=== PATIENT | female | born 1965 | race Caucasian/White ===

== ENCOUNTER → 2018-01-18 | Outpatient (CLI) | payer OTHER | LOC: BRMIMAGING 12:41 | PROVIDERS: ATTEND Family Medicine | DX: D25.9 Leiomyoma of uterus, unspecified (principal); N83.202 Unspecified ovarian cyst, left side | CPT/HCPCS: 76856-PO ==

== ENCOUNTER → 2018-01-30 | Outpatient (CLI) | payer OTHER | LOC: BRMIMAGING 13:59 | PROVIDERS: ATTEND Family Medicine | DX: Z12.31 Encounter for screening mammogram for malignant neoplasm of breast (principal) ==

== ENCOUNTER 2018-02-27 07:15 | Observation (INO) | payer OTHER ==
--- NOTE | 2018-02-26 19:44 | GHP ---
[f rep st] PREOP HISTORY AND PHYSICAL PLANNED PROCEDURE: Total laparoscopic hysterectomy with bilateral salpingectomy , possible oophorectomy, and cystoscopy. Additional procedures as indicated. INDICATIONS: The patient is a 52-year-old, 5, para 3-0-2 -3, who presented for evaluation of dysfunctional uterine bleeding and constant cramping. The patient has been on continuous control pills for 10 years. She did not have any periods or issues. Her primary care doctor decided to stop secondary to her age and she began having irregular cycles lasting 2 weeks , then off a week, then started bleeding again. She was bleeding for 7 days. The patient was restarted on control pills and her blood pressure increased, so the primary care doctor discontinued control pills. Since that time, the patient has had dysfunctional uterine bleeding as described above with constant cramping and fatigue. Pelvic ultrasound was unremarkable except for a small fibroid. The patient is also having issues with dyspareunia. Management options were reviewed with the patient; but because of her increased blood pressure with control pills, decision was made to proceed with definitive therapy with a total laparoscopic hysterectomy with bilateral salpingectomies. The patient is declining to have her ovaries removed at this time unless they look suspicious at time of surgery. Risks and benefits of the procedure have been extensively reviewed with the patient. The patient has been properly consented. PAST MEDICAL HISTORY: History of staph infection, history of kidney stones, fibromyalgia, history of interstitial cystitis, history of urinary incontinence , anxiety, and history of migraines. MEDICATIONS: 1. Gabapentin 900 mg 2 times a day. 2. Robinson Thyroid 60 mg a day. 3. Amlodipine 10 mg a day. 4. Effexor 75 mg a day. 5. Tramadol 50 mg 2 times a day. ALLERGIES: Iodine, codeine, and penicillin. 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 She denies tobacco, alcohol, or drug use. FAMILY MEDICAL HISTORY: Noncontributory. OBSTETRICS/GYNECOLOGICAL HISTORY: Menarche at age 11. Periods have been irregular over the last couple months, lasting 7 days and are very heavy. She is a 5, para 3-0-2-3. She has had 3 spontaneous vaginal deliveries, 1 voluntary termination of , and 1 spontaneous . PAST SURGICAL HISTORY: Bladder sling, voluntary termination of , nephrolithiasis. REVIEW OF SYSTEMS: A 10-point review of systems is negative with exception of the above mentioned pertinent positives of constant cramping and dysfunctional uterine bleeding and fatigue. PHYSICAL EXAMINATION: VITAL SIGNS: Stable, her blood pressure is 108/70. Her weight is 133. GENERAL APPEARANCE: Alert and oriented x3. NECK: Mobile and supple. PSYCH: Appropriate affect. MUSCULOSKELETAL: Grossly intact. NEURO: Grossly intact. HEART: Rate is irregular irregular. LUNGS: Clear to auscultation bilaterally. ABDOMEN: Soft, nondistended, nontender. EXTREMITIES : Reveal no calf tenderness or edema. PELVIC: Exam reveals a mobile midposition uterus with no adnexal masses. An endometrial biopsy was performed which was inactive proliferative endometrium. Pelvic ultrasound shows uterus measuring 8.5 x 6.1 x 5.8 cm with an intramural fibroid measuring 2.3 x 1.7 x 1.8 cm, and there is a cystic structure loaded noted on the left ovary. ASSESSMENT AND PLAN: This is a 52-year-old 5, para 3-0-2-3, with dysfunctional uterine bleeding and constant cramping requesting definitive therapy. She will undergo a total laparoscopic hysterectomy with bilateral salpingectomies and cystoscopy, possible oophorectomy. Risks and benefits have been extensively reviewed with the patient and the patient has been properly consented. /[id number]/MODL MTDD
[2018-02-27] MEDS ORDERED: ONDANSETRON 4 MG/2 ML VIAL IVP PRN (10:30)
[2018-02-27] MEDS ORDERED: LR 1,000 ML IV SCH (10:30)
[2018-02-27] MEDS ORDERED: ACETAMINOPHEN 500 MG TAB ONE (11:23)
[2018-02-27] MEDS ORDERED: DIAZEPAM 5 MG/ML 1 ML SYR ONE (11:23)
[2018-02-27] MEDS ORDERED: KETOROLAC 30 MG/1 ML SDV ONE ×2 (15:28→21:22)
[2018-02-27] MEDS ORDERED: ONDANSETRON 4 MG/2 ML VIAL ONE (16:56)
[2018-02-27] MEDS: traMADol 50 MG TAB PO SCH (21:00)
[2018-02-27] MEDS: KETOROLAC 30 MG/1 ML SDV IVP SCH (21:25)
[2018-02-27] MEDS ORDERED: GABAPENTIN 300 MG CAP ONE ×2 (21:36→21:38)
[2018-02-27] MEDS: GABAPENTIN 300 MG CAP PO SCH (21:40)
--- NOTE | 2018-02-27 22:32 | GOP ---
[f rep st] OPERATIVE REPORT DATE OF OPERATION: 02/27/2018 SURGEON: Joan Platt DO MEDIATOR: Jaun Carrasco MD PREOPERATIVE DIAGNOSIS: Dysfunctional uterine bleeding and menorrhagia. POSTOPERATIVE DIAGNOSIS: Dysfunctional uterine bleeding and menorrhagia. PROCEDURE PERFORMED: Total laparoscopic hysterectomy with bilateral salpingectomy and cystoscopy. FINDINGS: 1. Mobile, midposition uterus with no adnexal masses. 2. Laparoscopic findings: Omental adhesion to the anterior abdominal wall. Bilateral simple ovaria n cysts. Otherwise, normal ovaries, uterus, and tubes. SPECIMENS: Uterus, cervix and bilateral fallopian tubes. ESTIMATED BLOOD LOSS: 50 cc. INDICATIONS: The patient is a 52-year-old 5, para 3-0-2-3, who has a recent history of dysfu nctional uterine bleeding and bleeding 2 weeks at a time and very heavy bleeding. Management options were reviewed with the patient. The patient is not a candidate for control pills since she alexis s constant cramping and so is requesting definitive therapy with a total laparoscopic hysterectomy. The patient is not menopausal yet, so she has decided that she wants to keep her ovaries. Risks and benefits of the procedure were reviewed with the patient, and the patient was properly consented. DESCRIPTION OF PROCEDURE: The patient was taken to the operating room with intravenous fluids in wilmer ce. She was then placed on the operating room table in dorsal supine position where general anesthes ia was obtained. She was then repositioned into the dorsal lithotomy position with the Yellofin stir rups and prepped and draped in the normal sterile fashion. Exam under anesthesia revealed a mobile, midposition uterus with no adnexal masses. A Oscar catheter was placed. Venodynes were placed on he r lower extremities. She was also given 2 g of Ancef intravenously. A speculum was then placed, and a single-tooth tenaculum was placed on the anterior lip of the cervix. The cervix was sounded to 8. 5 cm and dilated to allow for the introduction of the BEBA uterine manipulator. The large cup was us ed. The balloons were tested prior to placement of the manipulator. A 5 mm skin incision was then m marva in the umbilicus, and a 5 mm trocar was advanced into the patient's abdomen under direct visualiz ation with the laparoscope. The abdomen was then insufflated with CO2 gas until an adequate pneumope ritoneum was achieved. The area underneath the trocar insertion site was evaluated and found to be u nremarkable. A 5 mm skin incision was then made in the patient's right lower quadrant, and a 5 mm tr ocar was then advanced into the patient's abdomen under direct visualization. A 10 mm skin incision was then made in the left lower quadrant, and a 10 mm trocar was advanced into the patient's abdomen under direct visualization. The laparoscope was then introduced into the lower port, and the umbilic al incision was evaluated. It was found to be unremarkable. Adhesions were noted between the anteri or abdominal wall and the omentum, and these were lysed carefully with the LigaSure. The camera was then reintroduced to the umbilical trocar. The uterus was noted to be freely mobile. Both ovaries, uterus, and tubes were unremarkable. The fallopian tube was identified and grasped at the fimbriated end, and a right salpingectomy was performed. The utero-ovarian ligament was clamped, cauterized, a nd transected. The broad ligament was clamped, cauterized, and transected. The uterine arteries wer e skeletonized, clamped, cauterized, and transected, and a bladder flap was created anteriorly. [facility] the patient's left side in which the same procedure was performed in a simil ar fashion. The uterine arteries were skeletonized and found to be hemostatic, and the bladder flap was created anteriorly, and the bladder was dissected well off the colpotomy cup. The colpotomy ring was easily identified. The colpotomy was made starting posteriorly and the ring. The colpotomy was made after the Pneumo Occluder balloon was inflated. It was then deflated, and the uterus was then withdrawn into the vagina and handed off. A sponge in a glove was then inserted into the vagina to h elp maintain pneumoperitoneum. Hemostasis of the vaginal cuff was assured. The ovaries were evaluat ed and found to be unremarkable, appeared to have simple cysts on them. The vaginal cuff was closed with an 0 Vicryl V-Loc suture in a running fashion. We went all the way across and then back [facility] to the midline with the V-Loc suture. The ureters were visualized and identified peristalsing. The pelvis was irrigated, and hemostasis was assured. The pedicles were evaluated and found to be hemos tatic. The 10 mm trocar was then removed from the patient's abdomen, and the fascia was closed with a fascial closure device with an 0 Vicryl suture. The patient was given methylene blue, and a cystos copy was performed. Bilateral ureteral jets were noted with methylene blue urine. The hysteroscope was then discontinued. The remainder of the instruments were removed from the patient's abdomen. CO 2 gas was expressed from the patient's abdomen. These incisions were then closed with 4-0 Monocryl. Sponge, lap, and needle counts were correct x2. The patient was transported to recovery room in sta ble condition. /[id number]/MODL
[2018-02-28] MEDS ORDERED: HYDROCODONE/APAP 5/325 TAB ONE (00:08)
[2018-02-28] MEDS: KETOROLAC 30 MG/1 ML SDV IVP SCH ×4 (03:30→15:09)
[2018-02-28 06:31] LABS: PLATELET COUNT 247 10^3/uL (150-400)
[2018-02-28] MEDS: HYDROCODONE/APAP 5/325 TAB PO PRN ×4 (07:35→17:46)
[2018-02-28 08:31] VITALS: BP 128/77
[2018-02-28] MEDS ORDERED: VENLAFAXINE XR 75 MG CAP PO SCH (09:00)
[2018-02-28] MEDS: IBUPROFEN 600 MG TAB PO SCH ×2 (09:04→16:05)
[2018-02-28] MEDS: traMADol 50 MG TAB PO SCH (09:05)
[2018-02-28] MEDS: GABAPENTIN 300 MG CAP PO SCH (09:05)
[2018-02-28] MEDS ORDERED: THYROID 60 MG TAB PO SCH (10:00)
--- NOTE | 2018-02-28 14:59 | POSTANESTH ---
[facility] Patient Name: SHANNA DUQUE Rpt#: [id number] Unit Number: [id number] Attending: DO Asmita Malone Date: 02/27/18 Post Anesthetic Evaluation Cardiovascular Status: Normal, Stable Respiratory Status: Normal, Stable Level of Consciousness/Mental Status: Can Participate in Eval Pain Control: Adequate, Prn Tx Ordered Nausea/Vomiting Control: Adequate, Prn Tx Ordered Complications Possibly Related to Anesthesia: None Noted Micah Linton MD 02/27/18 100 <Electronically signed by Micah Linton MD> 00 T: RAGHAVENDRA 02/27/181000 CC:
--- NOTE | 2018-02-28 16:09 | SOAPPROG ---
SOAP Progress Note Assessment/Plan: Assessment: pod# 1 s/p TLH BS for dub and menorrhagia uncomplicated post operative course fibromyalgia Plan: routine post operative care and discharge instructions 02/28/18 16:02 Subjective: patient is doing well overall. having some referred pain to her right shoulder from the laparoscopic surgery. pulse ox is reassuring. passing gas. voiding without difficulty. scant vaginal bleeding. ready to go home. reviewed surgical findings. Objective: Vital Signs Temp Pulse Resp BP Pulse Ox 37.0 C 77 18 128/77 H 97 02/28/18 08:29 02/28/18 08:29 02/28/18 08:29 02/28/18 09:03 02/28/18 11:38 Laboratory Results 02/28/18 06:15 02/27/18 02/28/18 03/01/18 05:59 05:59 05:59 Output Total 300 Balance -300 Physical Exam - Physical Exam General Appearance: WD/WN, alert, no apparent distress Neck: non-tender, full range of motion, supple, normal inspection Respiratory: chest non-tender, lungs clear, normal breath sounds Cardiac/Chest: normal peripheral pulses, regular rate, rhythm Abdomen: normal bowel sounds, non-tender, soft Pelvic Exam: deferred Rectal: deferred Back: Normal inspection Skin: normal color, warm/dry, other (incisions covered) Lymphatic: no adenopathy Extremities: normal range of motion, non-tender, normal inspection, normal capillary refill Neuro/Psych: no motor/sensory deficits, alert, normal mood/affect, oriented x 3 ICD10 Worksheet Patient Problems: Problems Problem Status Onset Menorrhagia Acute
== END 2018-02-28 18:20 | disposition home or self-care (01) ==
LOC: FOB 12:30
PROVIDERS: ADMIT Obstetrics & Gynecology; ATTEND Obstetrics & Gynecology
PROC: 0UTC4ZZ Resection of Cervix, Percutaneous Endoscopic Approach (ICD-10-PCS; principal; 2018-02-27 07:15)
PROC: 0UT9FZZ Resection of Uterus, Via Natural or Artificial Opening With Percutaneous Endoscopic Assistance (ICD-10-PCS; principal; 2018-02-27 07:15)
PROC: 0TJ98ZZ Inspection of Ureter, Via Natural or Artificial Opening Endoscopic (ICD-10-PCS; principal; 2018-02-27 07:15)
PROC: 0UT7FZZ Resection of Bilateral Fallopian Tubes, Via Natural or Artificial Opening With Percutaneous Endoscopic Assistance (ICD-10-PCS; principal; 2018-02-27 07:15)
DX: N92.0 Excessive and frequent menstruation with regular cycle (principal); N94.6 Dysmenorrhea, unspecified; M79.7 Fibromyalgia; N83.201 Unspecified ovarian cyst, right side; N83.202 Unspecified ovarian cyst, left side; F41.8 Other specified anxiety disorders; G43.909 Migraine, unspecified, not intractable, without status migrainosus; Z87.442 Personal history of urinary calculi
CPT/HCPCS: 58571; 88309; J1885; J2270; J2405; J3360